=== PATIENT | female | born 1950 | race Caucasian/White ===

== ENCOUNTER 2017-06-07 13:48 | Emergency (ER) | payer MEDICARE ==
--- NOTE | 2017-06-07 17:30 | ER Document Report ---
ED Medical Screen (RME) - General Chief Complaint: Nausea/Vomiting/Diarrhea Stated Complaint: NAUSEA,VOMITING,FEVER Time Seen by Provider: 06/07/17 17:25 Mode of Arrival: Ambulatory Information source: Patient Notes: Patient is a 66 year old female with PMHx of RA and kidney stones who presents with 3 day history fever (tmax 103F), chills, nausea, vomiting and dysuria. She states she vomited 4x, last episode yesterday. She feels dehydrated and endorses associated left flank pain. states she has history of kidney stones but this does not feel the same. She called her urologist who sent her here for evaluation. She has not had any medication. - Related Data Allergies/Adverse Reactions: No Known Allergies Allergy (Verified 06/07/17 13:50) Review of Systems - Review of Systems Constitutional: See HPI EENT: No symptoms reported Cardiovascular: No symptoms reported Respiratory: No symptoms reported Gastrointestinal: See HPI Genitourinary: See HPI Female Genitourinary: No symptoms reported Musculoskeletal: No symptoms reported Skin: No symptoms reported Hematologic/Lymphatic: No symptoms reported Neurological/Psychological: No symptoms reported Physical Exam - Vital signs Vitals: Temp Pulse Resp BP Pulse Ox 97.7 F 92 20 137/70 H 94 06/07/17 13:52 06/07/17 13:52 06/07/17 13:52 06/07/17 13:52 06/07/17 13:52 - Notes Notes: General: Alert and oriented, ambulatory with cane Chest: RRR, normal S1 and S2. GI: non-tender abdomen, normal bowel sounds, no rebound or guarding, +L CVAT. Course - Re-evaluation Re-evalutation: 06/07/17 17:29 I have greeted and performed a rapid initial assessment of this patient. A comprehensive ED assessment and evaluation of the patient, analysis of test results and completion of the medical decision making process will be conducted by additional ED providers. - Vital Signs Vital signs: Temp Pulse Resp BP Pulse Ox 97.7 F 92 20 137/70 H 94 06/07/17 13:52 06/07/17 13:52 06/07/17 13:52 06/07/17 13:52 06/07/17 13:52
[2017-06-07] MEDS ORDERED: NORMAL SALINE 1000 ML 1,000 ML IV ONE (17:32)
[2017-06-07 17:57] LABS: ABSOLUTE BASOPHILS # (AUTO) 0.1 10^3/uL (0.0-0.2); ABSOLUTE EOSINOPHILS # (AUTO) 0.1 10^3/uL (0.0-0.6); ABSOLUTE LYMPHOCYTES (AUTO) 1.5 10^3/uL (0.5-4.7); ABSOLUTE MONOCYTES (AUTO) 0.7 10^3/uL (0.1-1.4); BASOPHILS % (AUTO) 0.7 % (0-2); EOSINOPHILS % (AUTO) 1.1 % (0-6); HEMATOCRIT 39.5 % (36.0-47.0); HEMOGLOBIN 13.2 g/dL (12.0-15.5); LYMPHOCYTES % (AUTO) 20.5 % (13-45); MEAN CORPUSCULAR HEMOGLOBIN 31.7 pg (27.0-33.4); MEAN CORPUSCULAR HGB CONC 33.4 g/dL (32.0-36.0); MEAN CORPUSCULAR VOLUME 95 fl (80-97); MONOCYTES % (AUTO) 9.1 % (3-13); PLATELET COUNT 313 10^3/uL (150-450); RED BLOOD COUNT 4.16 10^6/uL (3.72-5.28); RED CELL DISTRIBUTION WIDTH 16.1 % (11.5-14.0); SEGMENTED NEUTROPHILS % (AUTO) 68.6 % (42-78); TOTAL CELLS COUNTED % (AUTO) 100 %; WHITE BLOOD COUNT 7.3 10^3/uL (4.0-10.5)
[2017-06-07 18:21] LABS: ALANINE AMINOTRANSFERASE 49 U/L (9-52); ALBUMIN 4.5 g/dL (3.5-5.0); ALKALINE PHOSPHATASE 54 U/L (38-126); ANION GAP 13 (5-19); ASPARTATE AMINO TRANSFERASE 51 U/L (14-36); BILIRUBIN,DIRECT 0.4 mg/dL (0.0-0.4); BILIRUBIN,TOTAL 0.4 mg/dL (0.2-1.3); BLOOD UREA NITROGEN 36 mg/dL (7-20); CALCIUM 9.9 mg/dL (8.4-10.2); CARBON DIOXIDE 26 mmol/L (22-30); CHLORIDE 104 mmol/L (98-107); GLUCOSE 86 mg/dL (75-110); POTASSIUM 5.3 mmol/L (3.6-5.0); TOTAL PROTEIN 7.5 g/dL (6.3-8.2)
[2017-06-07 20:03] LABS: APPEARANCE,URINE SLIGHTLY-CLOUDY; BILIRUBIN,URINE NEGATIVE (NEGATIVE); COLOR,URINE YELLOW; GLUCOSE, URINE NEGATIVE (NEGATIVE); KETONES,URINE NEGATIVE (NEGATIVE); LEUKOCYTE ESTERASE,URINE LARGE (NEGATIVE); NITRITE,URINE POSITIVE (NEGATIVE); PROTEIN,URINE NEGATIVE (NEGATIVE); UROBILINOGEN,URINE NEGATIVE mg/dL (<2.0)
--- NOTE | 2017-06-07 21:35 | RADIOLOGY REPORT (SQ) ---
EXAM DESCRIPTION: CT ABD/PELVIS NO ORAL OR IV COMPLETED DATE/TIME: 06/07/2017 9:12 pm REASON FOR STUDY: left flank pain, hx of nephrolithiasis COMPARISON: None. TECHNIQUE: CT scan of the abdomen and pelvis performed without intravenous or oral contrast. Images reviewed with lung, soft tissue, and bone windows. Reconstructed coronal and sagittal MPR images revi ewed. All images stored on PACS. All CT scanners at this facility use dose modulation, iterative reconstruction, and/or weight based d osing when appropriate to reduce radiation dose to as low as reasonably achievable (ALARA). [facility]: Dose Right [facility]: CareDose [facility]: Dose Right [facility]: Teradose 4D [facility]: Smart CurTran RADIATION DOSE: CT Rad equipment meets quality standard of care and radiation dose reduction techniq ues were employed. CTDIvol: 7.4 mGy. DLP: 370 mGy-cm.mGy. LIMITATIONS: Metallic artifact from hardware in the spine and right hip. FINDINGS: LOWER CHEST: No significant findings. No nodules or infiltrates. NON-CONTRASTED LIVER, SPLEEN, ADRENALS: Evaluation limited by lack of IV contrast. No identified sign ificant masses. PANCREAS: No masses. No peripancreatic inflammatory changes. GALLBLADDER: No identified stones by CT criteria. No inflammatory changes to suggest cholecystitis. RIGHT KIDNEY AND URETER: No suspicious masses. Assessment limited by lack of IV contrast. Several s mall calyceal calculi. No hydronephrosis or hydroureter. LEFT KIDNEY AND URETER: No suspicious masses. Assessment limited by lack of IV contrast. No signifi cant calcifications. No hydronephrosis or hydroureter. AORTA AND RETROPERITONEUM: No aneurysm. No retroperitoneal masses or adenopathy. BOWEL AND PERITONEAL CAVITY: No obvious masses or inflammatory changes. No free fluid. APPENDIX: Normal. PELVIS, BLADDER, AND ABDOMINAL WALL:No abnormal masses. No free fluid. Bladder normal. BONES: Degenerative changes in the spine. Surgical changes with hardware. Right hip prosthesis. OTHER: No other significant finding. IMPRESSION: 1. MULTIPLE NONOBSTRUCTING CALYCEAL CALCULI IN THE RIGHT KIDNEY. NO URETERAL CALCULI OR OBSTRUCTION. 2. NO OTHER SIGNIFICANT OR ACUTE PROCESS IN THE ABDOMEN OR PELVIS. SURGICAL CHANGES AND HARDWARE IN THE SPINE. RIGHT HIP PROSTHESIS. COMMENT: Quality ID # [id number]: Final reports with documentation of one or more dose reduction techniques (e.g., Automated exposure control, adjustment of the mA and/or kV according to patient size, use of iterative reconstruction technique) TECHNICAL DOCUMENTATION: JOB ID: [id number] 2016 [employer]- All Rights Reserved
[2017-06-08] MEDS ORDERED: CEFTRIAXONE INJ 1000 MG VIAL IV ONE (00:10)
--- NOTE | 2017-06-08 00:17 | ER Document Report ---
ED General - General Chief Complaint: Nausea/Vomiting/Diarrhea Stated Complaint: NAUSEA,VOMITING,FEVER Time Seen by Provider: 06/07/17 17:25 Mode of Arrival: Ambulatory Notes: Patient is a 66-year-old female presents with complaint of some foul-smelling urine and odor in her urine. She says it has been there since Tuesday or Tuesday. She did have a fever on Tuesday. No fever since then. No abdominal pain. No back pain. No chest pain. No shortness of breath. She does have a history of a stone in her right kidney that has been there for a long time. She said they once attempted lithotripsy but this was not successful. She says she feels as if she might have a urinary tract infection. She did vomit once on Tuesday. No vomiting since then. She said some decreased appetite but says she now feels hungry. No diarrhea. No other complaints at this time. - Related Data Allergies/Adverse Reactions: No Known Allergies Allergy (Verified 06/07/17 13:50) Past Medical History - General Information source: Patient - Social History Smoking Status: Never Smoker Chew tobacco use (# tins/day): No Frequency of alcohol use: None Drug Abuse: None Family History: Reviewed & Not Pertinent Patient has suicidal ideation: No Patient has homicidal ideation: No Renal/ Medical History: Denies: Hx Peritoneal Dialysis Review of Systems - Review of Systems Notes: My Normal Review Basic REVIEW OF SYSTEMS: CONSTITUTIONAL : Fever on Tuesday CARDIOVASCULAR: Denies chest pain. RESPIRATORY: Denies cough, cold, or chest congestion. Denies shortness of breath, difficulty breathing, or wheezing. GASTROINTESTINAL: Denies abdominal pain. One episode of vomiting. GENITOURINARY: Foul-smelling urine. MUSCULOSKELETAL: Denies neck or back pain or joint pain or swelling. SKIN: Denies rash or skin lesions. NEUROLOGICAL: Denies altered mental status or loss of consciousness. Denies headache. Denies weakness or paralysis or loss of use of either side. Denies problems with gait or speech. Denies sensory or motor loss. ALL OTHER SYSTEMS REVIEWED AND NEGATIVE. Physical Exam - Vital signs Vitals: Temp Pulse Resp BP Pulse Ox 97.7 F 92 20 137/70 H 94 06/07/17 13:52 06/07/17 13:52 06/07/17 13:52 06/07/17 13:52 06/07/17 13:52 - Notes Notes: General Appearance: Well nourished, alert, cooperative, no acute distress, no obvious discomfort. Vitals: reviewed, See vital signs table. Head: no swelling or tenderness to the head Eyes: PERRL, EOMI, Conjuctiva clear Mouth: No decreasd moistureNeck: Supple, no neck tenderness Lungs: No wheezing, No rales, No rhonci, No accessory muscle use, good air exchange bilaterally. Heart: Normal rate, Regular rythm, No murmur, no rub Abdomen: Normal BS, soft, No rigidity, No abdominal tenderness, No guarding, no rebound, no abdominal masses, no organomegaly Extremities: strength 5/5 in all extremities, good pulses in all extremities, no swelling or tenderness in the extremities, no edema. Skin: warm, dry, appropriate color, no rash Neuro: speech clear, oriented x 3, normal affect, responds appropriately to questions. Course - Re-evaluation Re-evalutation: 06/08/17 02:24 Patient says she is feeling much improved. The Zofran helped her significantly. After that she ate food. She said she ate well and feels well. Clinically she looks well. I have given her a dose of Rocephin. Will place her on Keflex for urinary tract infection. Encouraged her follow-up closely with her primary care doctor in 2 days. I informed her to return to the ER immediately if she has fevers, recurrent vomiting, worsening pain, or she feels unwell. Patient agrees with plan will be discharged home. Dictation of this chart was performed using voice recognition software; therefore, there may be some unintended grammatical errors. - Vital Signs Vital signs: Temp Pulse Resp BP Pulse Ox 98.6 F 65 18 140/69 H 100 06/07/17 22:22 06/07/17 22:22 06/07/17 22:22 06/07/17 22:22 06/07/17 20:57 - Laboratory Result Diagrams: 06/07/17 17:40 06/07/17 17:40 Laboratory results interpreted by me: 06/07/17 06/07/17 06/07/17 17:40 17:40 18:47 RDW 16.1 H Potassium 5.3 H BUN 36 H Creatinine 1.29 H Est GFR ( Amer) 50 L Est GFR (Non-Af Amer) 41 L AST 51 H Urine Nitrite POSITIVE H Ur Leukocyte Esterase LARGE H Discharge - Discharge Clinical Impression: UTI (urinary tract infection) Qualifiers: Urinary tract infection type: site unspecified Hematuria presence: without hematuria Qualified Code(s): N39.0 - Urinary tract infection, site not specified Condition: Good Disposition: HOME, SELF-CARE Additional Instructions: URINARY TRACT INFECTION: Your evaluation indicates that you have a urinary tract infection. This is due to germs growing in the bladder. This is a common problem. This infection usually responds quickly to antibiotics. Your antibiotic should be taken exactly as prescribed. Drink plenty of fluids -- three to four quarts a day. Occasionally, a bladder anesthetic will be prescribed to help stop the feeling of urgency until the antibiotic has a chance to clear the infection. This may cause your urine to be dark orange. Certain urine infections require a culture. If the doctor obtained a culture, the results will be back in two days. You should call to see if a change in treatment is needed. A repeat urinalysis after you finish treatment is often recommended. The physician will let you know if further testing is required. Call the doctor if you develop fever, chills, flank pain, inability to urinate, or blood in the urine. ANTIBIOTIC THERAPY: You have been given an antibiotic prescription. It's important that you take all the medication, unless instructed otherwise by your physician. Failure to complete the entire course can result in relapse of your condition. Common side effects of antibiotics include nausea, intestinal cramping, or diarrhea. Women may develop vaginal yeast infections, and babies can get yeast (thrush) in the mouth following the use of antibiotics. Contact your physician if you develop significant side effects from this medication. Allergy to this antibiotic can result in hives, wheezing, faintness, or itching. If symptoms of allergy occur, stop the medication and call the doctor. CEPHALEXIN: The antibiotic you've been prescribed is a member of the cephalosporin class. This type of antibiotic covers a wide variety of infections, including those of the skin, lungs, and urinary tract. It's useful for staph infections. This antibiotic is slightly similar to the penicillin family. In rare cases , a person who is allergic to penicillin will also be allergic to this medication. If you have had a severe allergic reaction to penicillin, and have not taken this antibiotic since that time, notify your doctor. Antibiotics which cover many germs ("broad spectrum" antibiotics) are more likely to cause diarrhea or "yeast" infections. Women prone to vaginal yeast problems may suffer an attack after taking this antibiotic. In infants, oral thrush (white spots "stuck" on the cheek) or yeast diaper rash may result. See your doctor if these problems occur. Call at once if you develop itching, hives , shortness of breath, or lightheadedness. FOLLOW-UP CARE: If you have been referred to a physician for follow-up care, call the physician s office for an appointment as you were instructed or within the next two days. If you experience worsening or a significant change in your symptoms, notify the physician immediately or return to the Emergency Department at any time for re-evaluation. Please have a low threshold to return to the ER immediately if you have fevers, recurrent vomiting, or feel that you are worsening. Please follow-up with your doctor in 2 days for close reevaluation. Prescriptions: Cephalexin Monohydrate [Keflex 500 mg Capsule] 500 mg PO BID 7 Days capsule Ondansetron [Zofran Odt 4 mg Tablet] 1 tab PO Q4H PRN #10 tab.rapdis PRN Reason: For Nausea/Vomiting
[2017-06-08 02:37] VITALS: BP 124/58
== END 2017-06-08 03:00 | disposition home or self-care (01) ==
LOC: ER 13:48
DX: N39.0 Urinary tract infection, site not specified (principal); R11.2 Nausea with vomiting, unspecified; R19.7 Diarrhea, unspecified; R50.9 Fever, unspecified
CPT/HCPCS: 99284; 96361; 96374; 36415; 85025; 80053; 81001; 74176; J0696; J7030

== ENCOUNTER 2018-10-15 19:30 | Emergency (ER) | payer MEDICARE ==
--- NOTE | 2018-10-15 19:58 | ER Document Report ---
ED Medical Screen (RME) - General Chief Complaint: Fall Stated Complaint: FALL/CONFUSION Time Seen by Provider: 10/15/18 19:44 Mode of Arrival: Medic Information source: Patient Notes: Patient states that around 1 PM today she realized that she had fallen while outside. Patient states that she was in her pajamas. Patient states that she has no memory of going outside. Patient states she does not have any concrete memory of the morning leading up to the point where she realized she had fallen while outside. Patient states that this is out of her normal behavior to go outside not fully clothed. patient complains of headache, neck pain, right wrist shoulder and hip pain. Patient states that throughout the afternoon since the fall she has had "wave actions" in the brain which make her feel off balance. Patient states that she does not typically have memory problems. Patient presently awake alert and oriented and able to answer questions appropriately. Patient with skin tear to right wrist. Patient reports tetanus immunizations up-to-date. hx: Hypothyroid, chronic back, neck pain, RA I have greeted and performed a rapid initial assessment of this patient. A comprehensive ED assessment and evaluation of the patient, analysis of test results and completion of the medical decision making process will be conducted by additional ED providers. - Related Data Allergies/Adverse Reactions: No Known Allergies Allergy (Verified 06/07/17 13:50) Past Medical History - Social History Chew tobacco use (# tins/day): No Frequency of alcohol use: None Drug Abuse: None Renal/ Medical History: Denies: Hx Peritoneal Dialysis Physical Exam - Vital signs Vitals: Temp Pulse Resp BP Pulse Ox 99.4 F 92 16 136/62 H 98 10/15/18 19:35 10/15/18 19:35 10/15/18 19:35 10/15/18 19:35 10/15/18 19:35 - Neurological Cognition: Normal [place] Coma Scale Eye Opening: Spontaneous [place] Coma Scale Verbal: Oriented [place] Coma Scale Motor: Obeys Commands Darya Coma Scale Total: 15 Speech: Normal. No: Dysarthria Cranial nerves: Normal. 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
--- NOTE | 2018-10-15 20:36 | RADIOLOGY REPORT (SQ) ---
EXAM DESCRIPTION: CT HEAD WITHOUT IV CONTRAST COMPLETED DATE/TME: 10/15/2018 19:52 CLINICAL HISTORY: 68 years Female fall, IBRAHIM, episode of confusion COMPARISON: None. TECHNIQUE: Contiguous axial CT images obtained through the brain without IV contrast. This exam was performed according to our department optimization program which includes automated exposure control, adjustment of the mA and/or kv according to patient size and/or use of iterative reconstruction technique. FINDINGS: The ventricles and sulci are within normal limits for the patient's age. No midline shift or mass effect. No masses identified. No acute intracranial hemorrhage. No fluid or significant mucosal thickening in the visualized paranasal sinuses. No depressed calvarial fractures. IMPRESSION: No acute intracranial abnormality is identified.
--- NOTE | 2018-10-15 20:39 | RADIOLOGY REPORT (SQ) ---
EXAM DESCRIPTION: CT CERVICAL SPINE WITHOUT IV CONTRAST COMPLETED DATE/TME: 10/15/2018 19:52 CLINICAL HISTORY: 68 years Female neck pain COMPARISON: None. TECHNIQUE: Contiguous axial images obtained through the cervical spine without IV contrast. Coronal and sagittal reformatted images obtained. This exam was performed according to our department optimization program which includes automated exposure control, adjustment of the mA and/or kv according to patient size and/or use of iterative reconstruction technique. FINDINGS: Normal cervical alignment. There is spinal fusion extending from C3 to C7. There is neural foraminal stenosis throughout the cervical spine most marked at the C3-C4 level. Anterior screws are present at C3-C4 Odontoid and occipital condyles appear intact. Left neural foraminal stenosis at C2-3. IMPRESSION: No acute cervical spinal fracture is identified. Multilevel degenerative change Multilevel spinal fusion.
--- NOTE | 2018-10-15 20:42 | RADIOLOGY REPORT (SQ) ---
EXAM DESCRIPTION: XR HIP 2 OR MORE VIEWS COMPLETED DATE/TME: 10/15/2018 19:53 CLINICAL HISTORY: 68 years Female fall COMPARISON: None. TECHNIQUE: Single AP view of the pelvis. FINDINGS: Previous spinal fixation in the lumbar spine with multilevel degenerative change noted. Total prosthesis of the hip on the right. The symphysis pubis and SI joints appear intact. Sacrum is obscured by bowel gas. Degenerative changes in the left hip with subchondral sclerosis and subchondral cyst formation. No evidence of periprosthetic fracture on the right. IMPRESSION: No acute fracture noted Total hip prosthesis on the right Degenerative changes in the left hip
--- NOTE | 2018-10-15 20:50 | RADIOLOGY REPORT (SQ) ---
EXAM DESCRIPTION: XR WRIST 3 OR MORE VIEWS BILATERAL COMPLETED DATE/TME: 10/15/2018 19:53 CLINICAL HISTORY: 68 years ,Female fall with posterior wrist pain COMPARISON: None. TECHNIQUE: RIGHT wrist, Three view FINDINGS: No acute fractures or dislocations are identified. No osseous destructive lesions. IMPRESSION: No acute fractures are identified. If symptoms persist, followup is recommended in 7-10 days.
--- NOTE | 2018-10-15 21:23 | RADIOLOGY REPORT (SQ) ---
EXAM DESCRIPTION: XR SHOULDER 2 OR MORE VIEWS COMPLETED DATE/TME: 10/15/2018 19:53 CLINICAL HISTORY: 68 years Female fall COMPARISON: None. TECHNIQUE: RIGHT shoulder three view FINDINGS: No acute fractures or dislocations identified. No osseous destructive lesions. Acromioclavicular joint appears maintained. Degenerative changes at the AC joint. There is loss of the acromiohumeral distance consistent with shoulder impingement syndrome. IMPRESSION: No acute fracture Shoulder impingement syndrome
--- NOTE | 2018-10-15 21:24 | RADIOLOGY REPORT (SQ) ---
EXAM DESCRIPTION: XR CHEST 1 VIEW COMPLETED DATE/TME: 10/15/2018 19:52 CLINICAL HISTORY: 68 years Female fall, IBRAHIM, episode of confusion COMPARISON: None. FINDINGS: The cardiomediastinal silhouette appears unremarkable. No consolidating infiltrates or pleural effusions. No pneumothorax. Calcification in aorta. Degenerative changes in the spine. IMPRESSION: No acute abnormality is identified.
[2018-10-15 21:36] LABS: ABSOLUTE BASOPHILS # (AUTO) 0.1 10^3/uL (0.0-0.2); ABSOLUTE LYMPHOCYTES (AUTO) 0.8 10^3/uL (0.5-4.7); ABSOLUTE MONOCYTES (AUTO) 0.5 10^3/uL (0.1-1.4); ABSOLUTE NEUT (AUTO) 6.1 10^3/uL (1.7-8.2); BASOPHILS % (AUTO) 1.1 % (0-2); EOSINOPHILS % (AUTO) 0.1 % (0-6); HEMATOCRIT 37.6 % (36.0-47.0); HEMOGLOBIN 12.6 g/dL (12.0-15.5); LYMPHOCYTES % (AUTO) 10.5 % (13-45); MEAN CORPUSCULAR HEMOGLOBIN 30.4 pg (27.0-33.4); MEAN CORPUSCULAR HGB CONC 33.4 g/dL (32.0-36.0); MEAN CORPUSCULAR VOLUME 91 fl (80-97); MONOCYTES % (AUTO) 6.2 % (3-13); PLATELET COUNT 325 10^3/uL (150-450); RED BLOOD COUNT 4.13 10^6/uL (3.72-5.28); RED CELL DISTRIBUTION WIDTH 15.6 % (11.5-14.0); SEGMENTED NEUTROPHILS % (AUTO) 82.1 % (42-78); TOTAL CELLS COUNTED % (AUTO) 100 %; WHITE BLOOD COUNT 7.4 10^3/uL (4.0-10.5)
[2018-10-15 21:45] LABS: PARTIAL THROMBOPLASTIN TIME 33.6 SEC (23.5-35.8)
[2018-10-15 21:47] LABS: PROTHROMBIN TIME 13.7 SEC (11.4-15.4)
[2018-10-15 21:55] LABS: ALANINE AMINOTRANSFERASE 31 U/L (9-52); ALKALINE PHOSPHATASE 63 U/L (38-126); ANION GAP 11 (5-19); ASPARTATE AMINO TRANSFERASE 27 U/L (14-36); BILIRUBIN,DIRECT 0.3 mg/dL (0.0-0.4); BILIRUBIN,TOTAL 0.3 mg/dL (0.2-1.3); BLOOD UREA NITROGEN 28 mg/dL (7-20); CALCIUM 9.1 mg/dL (8.4-10.2); CARBON DIOXIDE 28 mmol/L (22-30); CHLORIDE 101 mmol/L (98-107); CREATINE KINASE 97 U/L (30-135); GLUCOSE 110 mg/dL (75-110); POTASSIUM 3.8 mmol/L (3.6-5.0); SODIUM 139.5 mmol/L (137-145); TOTAL PROTEIN 6.8 g/dL (6.3-8.2)
[2018-10-15 22:07] LABS: CREATINE KINASE MB 1.26 ng/mL (<4.55)
[2018-10-15 22:09] LABS: TROPONIN I < 0.012 ng/mL
[2018-10-15] MEDS ORDERED: NORMAL SALINE 1000 ML 1,000 ML IV ONE (22:20)
[2018-10-15] MEDS ORDERED: MECLIZINE HCL 25 MG TABLET PO ONE (22:20)
[2018-10-15 23:05] LABS: APPEARANCE,URINE CLEAR; BILIRUBIN,URINE NEGATIVE (NEGATIVE); COLOR,URINE YELLOW; GLUCOSE, URINE NEGATIVE (NEGATIVE); KETONES,URINE NEGATIVE (NEGATIVE); LEUKOCYTE ESTERASE,URINE TRACE (NEGATIVE); NITRITE,URINE POSITIVE (NEGATIVE); PROTEIN,URINE NEGATIVE (NEGATIVE); URINE SPECIFIC GRAVITY 1.009; UROBILINOGEN,URINE NEGATIVE mg/dL (<2.0)
--- NOTE | 2018-10-15 23:33 | EKG REPORT ---
SEVERITY:- ABNORMAL ECG - SINUS RHYTHM MULTIPLE ATRIAL PREMATURE COMPLEXES RIGHT AXIS DEVIATION : Confirmed by: Carrie Joaquin MD 15-Oct-2018 23:32:46
--- NOTE | 2018-10-15 23:43 | ER Document Report ---
ED General - General Chief Complaint: Fall Stated Complaint: FALL/CONFUSION Time Seen by Provider: 10/15/18 19:44 Primary Care Provider: BINTA RHODES MD [NO LOCAL MD] - Follow up as needed Mode of Arrival: Medic Notes: RME note: Patient states that around 1 PM today she realized that she had fallen while outside. Patient states that she was in her pajamas. Patient states that she has no memory of going outside. Patient states she does not have any concrete memory of the morning leading up to the point where she realized she had fallen while outside. Patient states that this is out of her normal behavior to go outside not fully clothed. patient complains of headache, neck pain, right wrist shoulder and hip pain. Patient states that throughout the afternoon since the fall she has had "wave actions" in the brain which make her feel off balance. Patient states that she does not typically have memory problems. Patient presently awake alert and oriented and able to answer questions appropriately. Patient with skin tear to right wrist. Patient reports tetanus immunizations up-to-date. - Related Data Allergies/Adverse Reactions: No Known Allergies Allergy (Verified 06/07/17 13:50) Past Medical History - General Information source: Patient - Social History Smoking Status: Former Smoker Chew tobacco use (# tins/day): No Frequency of alcohol use: None Drug Abuse: None Family History: Reviewed & Not Pertinent Patient has suicidal ideation: No Patient has homicidal ideation: No - Medical History Medical History: Negative Renal/ Medical History: Denies: Hx Peritoneal Dialysis Surgical Hx: Negative - Immunizations Immunizations up to date: Yes Review of Systems - Review of Systems Constitutional: Other - Dizziness EENT: No symptoms reported Cardiovascular: No symptoms reported Respiratory: No symptoms reported Gastrointestinal: No symptoms reported Genitourinary: No symptoms reported Female Genitourinary: No symptoms reported Musculoskeletal: No symptoms reported Skin: No symptoms reported Hematologic/Lymphatic: No symptoms reported Neurological/Psychological: No symptoms reported Physical Exam - Vital signs Vitals: Temp Pulse Resp BP Pulse Ox 99.4 F 92 16 136/62 H 98 10/15/18 19:35 10/15/18 19:35 10/15/18 19:35 10/15/18 19:35 10/15/18 19:35 - Notes Notes: PHYSICAL EXAMINATION: GENERAL: Well-appearing, well-nourished and in no acute distress. HEAD: Atraumatic, normocephalic. EYES: Pupils equal round and reactive to light, extraocular movements intact, conjunctiva are normal. ENT: Nares patent, oropharynx clear without exudates. Moist mucous membranes. NECK: Normal range of motion, supple without lymphadenopathy LUNGS: Breath sounds clear to auscultation bilaterally and equal. No wheezes rales or rhonchi. HEART: Regular rate and rhythm without murmurs ABDOMEN: Soft, nontender, nondistended abdomen. No guarding, no rebound. No masses appreciated. Female : deferred Musculoskeletal: Normal range of motion, no pitting or edema. No cyanosis. NEUROLOGICAL: Cranial nerves grossly intact. Normal speech, normal gait. Normal sensory, motor exams PSYCH: Normal mood, normal affect. SKIN: Warm, Dry, normal turgor, no rashes or lesions noted. Course - Re-evaluation Re-evalutation: Patient appears well, nontoxic and vital signs are within normal limits. Patient did have a fall today which was likely caused by an episode of syncope. Patient states she has had vertigo in the past and takes meclizine for this. Patient reports that she thinks that this may have contributed to her fall today. Patient was given a dose of meclizine here in the emergency department which definitely helped her symptoms. Her urinalysis was positive for nitrites however patient is already taking daily antibiotics for this and she sees a urologist. Otherwise labs were unremarkable other than a mildly elevated creatinine. Patient will be given a 1 L normal saline bolus with plans to d ischarge home after that as patient absolutely does not want to be admitted for syncope. Family member is at bedside and is in agreements with plan. - Vital Signs Vital signs: Temp Pulse Resp BP Pulse Ox 98.7 F 72 16 142/64 H 98 10/16/18 00:30 10/15/18 21:30 10/16/18 00:01 10/16/18 00:01 10/16/18 00:01 - Laboratory Result Diagrams: 10/15/18 21:20 10/15/18 21:20 Laboratory results interpreted by me: 10/15/18 10/15/18 10/15/18 20:57 21:20 21:20 RDW 15.6 H Seg Neutrophils % 82.1 H Lymphocytes % 10.5 L BUN 28 H Creatinine 1.53 H Est GFR ( Amer) 41 L Est GFR (Non-Af Amer) 34 L POC Glucose 114 H Urine Nitrite Ur Leukocyte Esterase 10/15/18 22:47 RDW Seg Neutrophils % Lymphocytes % BUN Creatinine Est GFR ( Amer) Est GFR (Non-Af Amer) POC Glucose Urine Nitrite POSITIVE H Ur Leukocyte Esterase TRACE H Discharge - Discharge Clinical Impression: Fall Qualifiers: Encounter type: initial encounter Qualified Code(s): W19.XXXA - Unspecified fall, initial encounter Syncope Qualifiers: Syncope type: unspecified Qualified Code(s): R55 - Syncope and collapse Condition: Stable Disposition: HOME, SELF-CARE Additional Instructions: You were seen today after an episode of passing out. Your EKG here is normal. At this time, we do not feel that your episode of passing out was from any life- threatening cause. Please drink plenty of fluids over the next several days. Return to emergency department if you have any further episodes of syncope, headache, weakness, numbness, chest pain, or shortness of breath. Please follow up closely with your primary care physician. Referrals: BINTA RHODES MD [NO LOCAL MD] - Follow up as needed
--- NOTE | 2018-10-15 23:49 | ER Document Report ---
ED General - General Chief Complaint: Fall Stated Complaint: FALL/CONFUSION Time Seen by Provider: 10/15/18 19:44 Primary Care Provider: ESTEVAN MCCARTHY MD [Primary Care Provider] - Follow up as needed Mode of Arrival: Medic - Related Data Allergies/Adverse Reactions: No Known Allergies Allergy (Verified 06/07/17 13:50) Past Medical History - General Information source: Patient - Social History Smoking Status: Unknown if Ever Smoked Chew tobacco use (# tins/day): No Frequency of alcohol use: None Drug Abuse: None Family History: Reviewed & Not Pertinent Patient has suicidal ideation: No Patient has homicidal ideation: No Renal/ Medical History: Denies: Hx Peritoneal Dialysis Physical Exam - Vital signs Vitals: Temp Pulse Resp BP Pulse Ox 99.4 F 92 16 136/62 H 98 10/15/18 19:35 10/15/18 19:35 10/15/18 19:35 10/15/18 19:35 10/15/18 19:35 Course - Vital Signs Vital signs: Temp Pulse Resp BP Pulse Ox 99.4 F 72 34 H 133/54 H 99 10/15/18 19:35 10/15/18 21:30 10/15/18 22:00 10/15/18 21:30 10/15/18 22:00 - Laboratory Result Diagrams: 10/15/18 21:20 10/15/18 21:20 Laboratory results interpreted by me: 10/15/18 10/15/18 10/15/18 20:57 21:20 21:20 RDW 15.6 H Seg Neutrophils % 82.1 H Lymphocytes % 10.5 L BUN 28 H Creatinine 1.53 H Est GFR ( Amer) 41 L Est GFR (Non-Af Amer) 34 L POC Glucose 114 H Urine Nitrite Ur Leukocyte Esterase 10/15/18 22:47 RDW Seg Neutrophils % Lymphocytes % BUN Creatinine Est GFR ( Amer) Est GFR (Non-Af Amer) POC Glucose Urine Nitrite POSITIVE H Ur Leukocyte Esterase TRACE H Discharge - Discharge Clinical Impression: Fall Qualifiers: Encounter type: initial encounter Qualified Code(s): W19.XXXA - Unspecified fall, initial encounter Syncope Qualifiers: Syncope type: unspecified Qualified Code(s): R55 - Syncope and collapse Condition: Stable Disposition: HOME, SELF-CARE Referrals: ESTEVAN MCCARTHY MD [Primary Care Provider] - Follow up as needed
[2018-10-16 00:40] VITALS: BP 142/64
== END 2018-10-16 00:40 | disposition home or self-care (01) ==
LOC: ER 19:30
DX: S61.511A Laceration without foreign body of right wrist, initial encounter (principal); R51 Headache; M54.2 Cervicalgia; M25.531 Pain in right wrist; M25.511 Pain in right shoulder; M25.551 Pain in right hip; W19.XXXA Unspecified fall, initial encounter; R41.3 Other amnesia; R55 Syncope and collapse; Z87.891 Personal history of nicotine dependence
CPT/HCPCS: 93005; 99285; 96360; 36415; 82553; 82962; 82550; 85025; 85610; 85730; 80053; 81001; 84484; 71045; 73502; 73030; 73110; 70450; 72125; 93010; L0120; A9270; J7030